=== PATIENT | female | born 1975 | race Caucasian/White ===

== ENCOUNTER 2020-01-08 23:50 | Emergency (ER) | payer MEDICAID, SELFPAY ==
[2020-01-08 23:54] VITALS: BP 113/82; PULSE 94; RESP 18; TEMP 36.8; O2SAT 99; BMI 23.5
--- NOTE | 2020-01-09 00:04 | CTR_ITS ---
PROCEDURE INFORMATION: Exam: CT Head Without Contrast Exam date and time: 01/09/2020 12:06 AM Age: 44 years old Clinical indication: Pain; Headache not specified; Additional info: [place] TECHNIQUE: Imaging protocol: Computed tomography of the head without contrast. Radiation optimization: All CT scans at this facility use at least one of these dose optimization techniques: automated exposure control; mA and/or kV adjustment per patient size (includes targeted exams where dose is matched to clinical indication); or iterative reconstruction. COMPARISON: No relevant prior studies available. RADIATION DOSE METRICS: Total DLP (mGy-cm): 896 FINDINGS: Brain: No acute intracranial hemorrhage or mass effect. No definite acute infarct by CT. Ventricles: Ventricle size is normal for age. Bones/joints: No definite acute skull fracture. Sinuses: 9 mm retention cyst or polyp in the right aspect of the sphenoid sinus. Included paranasal sinuses otherwise appear essentially clear. Mastoid air cells: No significant acute finding. CT/CT head wo con* [id number] IMPRESSION: 1. No acute intracranial hemorrhage or mass effect. 2. Other findings discussed above. Radiation Dose CTDIVOL = (mGy): DLP = 896 (mGy-cm)
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
[2020-01-09 01:26] VITALS: RESP 16
[2020-01-09] MEDS: HYDROmorphone 1 mg/mL INJ 1 mL IVP (01:26)
[2020-01-09] MEDS: metoclopramide 5 mg/mL SDV 2 mL 10 MG IVP (01:27)
[2020-01-09] MEDS: diphenhydrAMINE 50 mg/mL SDV 1mL IVP (01:28)
[2020-01-09 02:04] VITALS: BP 110/78; PULSE 75; RESP 18; O2SAT 93
== END 2020-01-09 02:06 | disposition home or self-care (01) ==
PROVIDERS: Emergency Provider Emergency Medicine; PCP Internal Medicine
DX: R51 Headache (principal); F17.210 Nicotine dependence, cigarettes, uncomplicated
CPT/HCPCS: 12345; 70450; 96374; 96375; 99281; 99283; J1170; J1200; J2765

== ENCOUNTER → 2020-01-22 08:29 | Outpatient (BNVA) | payer MEDICAID, SELFPAY | PROVIDERS: PCP Internal Medicine; Visit Provider Nurse Practitioner Psychiatric/Mental Health | DX: F33.3 Major depressive disorder, recurrent, severe with psychotic symptoms (principal); F41.0 Panic disorder [episodic paroxysmal anxiety]; F43.12 Post-traumatic stress disorder, chronic; F17.210 Nicotine dependence, cigarettes, uncomplicated; Z87.820 Personal history of traumatic brain injury | CPT/HCPCS: 99214 ==

== ENCOUNTER → 2021-07-05 10:16 | Outpatient (BNVA) | payer MEDICAID, SELFPAY | PROVIDERS: PCP Family Medicine; Visit Provider Nurse Practitioner Psychiatric/Mental Health | DX: Z03.89 Encounter for observation for other suspected diseases and conditions ruled out (principal); F17.210 Nicotine dependence, cigarettes, uncomplicated; F33.3 Major depressive disorder, recurrent, severe with psychotic symptoms; F41.0 Panic disorder [episodic paroxysmal anxiety]; F43.12 Post-traumatic stress disorder, chronic; Z87.820 Personal history of traumatic brain injury | CPT/HCPCS: 90792 ==

== ENCOUNTER → 2021-10-07 15:06 | Outpatient (BNVA) | payer MEDICAID, SELFPAY | PROVIDERS: PCP Family Medicine; Visit Provider Registered Nurse Neonatal Intensive Care | DX: N39.0 Urinary tract infection, site not specified (principal) | CPT/HCPCS: 81000 ==

== ENCOUNTER 2022-04-08 23:22 | Emergency (ER) | payer MEDICAID, SELFPAY ==
[2022-04-08 23:26] VITALS: BP 125/75; PULSE 119; RESP 18; TEMP 37.1; O2SAT 100; BMI 26.6
[2022-04-09 00:20] LABS: Add Urine Microscopic? NO; Charge for UA Resulting for Rev
[2022-04-09 00:23] LABS: Bilirubin Urine Neg (Negative); Blood Urine Neg (Negative); Glucose Urine UA Norm (Normal); Ketones Urine Negative (Negative); Leukocyte Esterase Urine Negative (Negative); Nitrate Urine Negative (Negative); Protein Urine Neg (Negative); Specific Gravity, Urine 1.025 (1.005-1.030); Urine Appearance Clear (CLEAR); Urine Color Yellow (Yellow); Urobilinogen Urine Norm (Negative); pH Urine 5 (5-7)
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
[2022-04-09] MEDS: metroNIDAZOLE 500 MG Tablet PO (01:57)
--- NOTE | 2022-04-16 19:27 | PC.NURSE ---
patient called performed and patient notified of positive culture for Bacterial Vaginosis. Patient teaching performed over phone. patient states understanding and denies questions/concerns upon call.
== END 2022-04-09 01:58 | disposition home or self-care (01) ==
PROVIDERS: Emergency Medicine; Emergency Provider Nurse Practitioner; PCP Family Medicine
DX: N76.0 Acute vaginitis (principal); F17.210 Nicotine dependence, cigarettes, uncomplicated
CPT/HCPCS: 81003; 87070; 87205; 87210; 99283

== ENCOUNTER 2022-05-15 16:41 | Emergency (ER) | payer MEDICAID, SELFPAY ==
[2022-05-15 16:50] VITALS: BP 144/87; PULSE 110; RESP 16; TEMP 36.6; O2SAT 98
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
[2022-05-15] MEDS: cephALEXin 500 mg Capsule PO (19:22)
[2022-05-15] MEDS: naproxen 500 mg Tablet PO (19:22)
== END 2022-05-15 19:23 | disposition home or self-care (01) ==
PROVIDERS: Emergency Provider Emergency Medicine
DX: K08.89 Other specified disorders of teeth and supporting structures (principal); F17.210 Nicotine dependence, cigarettes, uncomplicated
CPT/HCPCS: 99283

== ENCOUNTER 2023-06-22 19:51 | Emergency (ER) | payer MEDICAID, SELFPAY ==
[2023-06-22 20:02] VITALS: BP 131/95; PULSE 102; RESP 18; TEMP 36.7
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
--- NOTE | 2023-06-22 20:28 | XRR_ITS ---
PROCEDURE INFORMATION: Exam: XR Chest Exam date and time: 06/22/2023 8:50 PM Age: 47 years old Clinical indication: Dyspnea; Additional info: SOB TECHNIQUE: Imaging protocol: Radiologic exam of the chest. Views: 1 view. COMPARISON: CR XR chest 2V* [id number] 11/12/2021 1:23 PM FINDINGS: Lungs: Unremarkable. No consolidation. Pleural spaces: Unremarkable. No pleural effusion. No pneumothorax. Heart/Mediastinum: Unremarkable. No cardiomegaly. Bones/joints: Unremarkable. XR/XR chest 1V portable [id number] IMPRESSION: No acute findings.
[2023-06-22 20:29] LABS: Rapid Strep A Test Negative (Negative)
[2023-06-22] MEDS: sodium chloride 0.9% 1,000 ML 999 ML IV (20:32)
[2023-06-22 20:33] LABS: Influenza A by IFA negative (Negative); Influenza B by IFA negative (Negative); SARS Covid-2 Antigen negative (Negative)
[2023-06-22 20:36] LABS: Charge for UA Resulting for Rev
[2023-06-22 20:37] LABS: Basophils # 0.1 10^3/uL (0.0-0.1); Basophils % 0.5 %; Eosinophils # 0.1 10^3/uL (0.0-0.8); Eosinophils % 1.4 %; Hematocrit 48.8 % (36-47); Lymphocytes # 2.2 10^3/uL (0.8-4.8); Lymphocytes % 21.5 %; Mean Corpuscular Hemoglobin 29.5 pg (27-33); Mean Corpuscular Volume 89.5 fl (85-98); Mean Platelet Volume 9.8 fL (7.4-10.4); Monocytes # 0.5 10^3/uL (0.2-0.9); Monocytes % 4.5 %; Neutrophils # 7.38 10^3/uL (1.8-7.7); Neutrophils % 71.6 %; Nucleated Red Blood Cells % 0 %; Platelet Count 436 10^3/cmm (157-399); Red Blood Count 5.45 10^6/uL (3.85-5.65); Red Cell Distribution Width 12.4 % (12.1-15.1); White Blood Count 10.29 10^3/uL (3.29-11.43)
[2023-06-22 20:45] LABS: Add Urine Microscopic? NO; Bilirubin Urine Neg (Negative); Blood Urine Neg (Negative); Glucose Urine UA Norm (Normal); Ketones Urine Negative (Negative); Leukocyte Esterase Urine Negative (Negative); Nitrate Urine Negative (Negative); Protein Urine Neg (Negative); Sulfosalicylic Acid Urine Negative (Negative); Urine Appearance Clear (CLEAR); Urine Color Yellow (Yellow); Urobilinogen Urine Norm (Negative); pH Urine 8 (5-7)
[2023-06-22 20:47] LABS: Amphetamines Screen Urine Positive (Negative); Barbiturates Screen Urine Negative (Negative); Benzodiazepines Screen Urine Negative (Negative); Cocaine Screen Urine Negative (Negative); Opiate Screen Urine Negative (Negative); PCP Screen Urine Negative (Negative); THC Screen Urine Negative (Negative)
[2023-06-22 20:52] LABS: Alanine Aminotransferase 28 U/L (0-33); Albumin Level 4.6 g/dL (3.5-5.2); Alkaline Phosphatase 80 U/L (35-105); Anion Gap 14.1 (5-19); Aspartate Amino Transferase 27 U/L (0-32); Blood Urea Nitrogen 8 mg/dL (6-20); Carbon Dioxide 30 mmol/L (22-29); Chloride 98 mmol/L (98-107); Globulin 3.9 g/dL (1.3-4.6); Glomerular Filtration Rate 90.1 mL/min (90-130); Glucose 102 mg/dL (65-115); Osmolality Calculated 285 mOsm/kg (285-295); Potassium 4.1 mmol/L (3.5-5.1); Sodium 138 mmol/L (136-145); Total Bilirubin 0.5 mg/dL (0.15-1.2); Total Protein 8.5 g/dL (6.6-8.7)
[2023-06-22] MEDS: dexamethasone 10 mg/mL INJ IVP (21:23)
[2023-06-22 21:28] VITALS: RESP 18
== END 2023-06-22 21:31 | disposition home or self-care (01) ==
PROVIDERS: Nurse Practitioner Family; Emergency Provider Emergency Medicine; PCP Family Medicine Adult Medicine
DX: J06.9 Acute upper respiratory infection, unspecified (principal); Z11.52 Encounter for screening for COVID-19; F17.210 Nicotine dependence, cigarettes, uncomplicated
CPT/HCPCS: 71045; 80053; 80306; 81003; 85025; 87081; 87426; 87804; 87880; 96361; 96374; 99284; J1100; J7030

== ENCOUNTER 2024-01-09 07:04 | Emergency (ER) | payer MEDICAID, SELFPAY ==
[2024-01-09 07:05] VITALS: BP 120/80; PULSE 78; RESP 22; TEMP 36.3; O2SAT 100
--- NOTE | 2024-01-09 07:06 | CTR_ITS ---
PROCEDURE INFORMATION: Exam: CT Abdomen And Pelvis Without Contrast Exam date and time: 01/09/2024 7:38 AM Age: 48 years old Clinical indication: Abdominal pain; Prior surgery; Surgery date: 6+ months; Surgery type: Gb, partial hyst; Additional info: Flank pain TECHNIQUE: Imaging protocol: Computed tomography of the abdomen and pelvis without contrast. Radiation optimization: All CT scans at this facility use at least one of these dose optimization techniques: automated exposure control; mA and/or kV adjustment per patient size (includes targeted exams where dose is matched to clinical indication); or iterative reconstruction. COMPARISON: CR XR chest 1V portable [id number] 06/22/2023 8:50 PM RADIATION DOSE METRICS: Total DLP (mGy-cm): 754 FINDINGS: Lungs: Lung bases are clear as visualized. Liver: Normal. No mass. Gallbladder and biliary ducts: There are surgical clips within the gallbladder fossa. Pancreas: Normal. No ductal dilation. Spleen: Normal. No splenomegaly. Adrenal glands: Normal. No mass. Kidneys and ureters: Nonobstructing renal calculi are noted on the left. There is mild hydronephrosis and hydroureter on the left extending to the ureterovesical junction where there is a 2-3 mm stone present. The right kidney has a normal noncontrast appearance. Stomach and bowel: There are scattered colonic diverticula. No large bowel wall thickening is appreciated. No dilated loops of large or small bowel is appreciated. Appendix: No evidence of appendicitis. Intraperitoneal space: Unremarkable. No free air. No significant fluid collection. Vasculature: The aorta is normal in caliber. There is calcified plaque involving the aorta and its branch vessels. Lymph nodes: Unremarkable. No enlarged lymph nodes. Urinary bladder: Unremarkable as visualized. Reproductive: The uterus is not definitely identified. There is a right adnexal/ovarian cyst measuring 4 cm in size small hyperdensity noted involving what is presumed to be the vaginal cuff. This may represent a Storm's duct cyst. Bones/joints: Unremarkable. No acute fracture. Soft tissues: There is a small fat filled periumbilical hernia. CT/CT kidney stone [id number] IMPRESSION: 1. Nephrolithiasis on the left. 2. Mild hydronephrosis and hydroureter on the left secondary to a small distal left ureteral stone. 3. 4 cm right ovarian cyst. No further imaging is recommended. (Reference: Shayan) References: Shayan et al. Management of Incidental Adnexal Findings on CT and MRI: A White Paper of the ACR Incidental Findings Committee, J Am Tomas Radiol. 2019;17(2):248-254.
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
[2024-01-09 07:24] LABS: Basophils % 0.5 %; Eosinophils # 0.1 10^3/uL (0.0-0.8); Eosinophils % 1.2 %; Hematocrit 42.8 % (36-47); Lymphocytes # 2.7 10^3/uL (0.8-4.8); Lymphocytes % 32.4 %; Mean Corpuscular HGB Conc 33.6 g/dL (30-55); Mean Corpuscular Hemoglobin 30.6 pg (27-33); Mean Corpuscular Volume 90.9 fl (85-98); Monocytes # 0.5 10^3/uL (0.2-0.9); Neutrophils # 4.96 10^3/uL (1.8-7.7); Neutrophils % 59.8 %; Nucleated Red Blood Cells % 0 %; Platelet Count 351 10^3/cmm (157-399); Red Blood Count 4.71 10^6/uL (3.85-5.65); Red Cell Distribution Width 12.2 % (12.1-15.1)
[2024-01-09 07:32] VITALS: RESP 20; O2SAT 100
[2024-01-09] MEDS: morphine 4 mg/mL SDV 1 mL IVP (07:32)
[2024-01-09] MEDS: ondansetron 2 mg/ML SDV 2 mL 4 MG IVP (07:35)
[2024-01-09] MEDS: sodium chloride 0.9% 1,000 ML 999 ML IV (07:35)
[2024-01-09] MEDS: ketorolac 30 mg/mL INJ IVP (07:35)
[2024-01-09 07:40] LABS: Alanine Aminotransferase 20 U/L (0-33); Albumin Level 4.3 g/dL (3.5-5.2); Alkaline Phosphatase 68 U/L (35-105); Anion Gap 14.9 (5-19); Aspartate Amino Transferase 21 U/L (0-32); Blood Urea Nitrogen 18 mg/dL (6-20); Calcium 9.3 mg/dL (8.5-10.5); Carbon Dioxide 24 mmol/L (22-29); Chloride 106 mmol/L (98-107); Creatinine Clr Calc Pharmacy 96.7896; Globulin 2.7 g/dL (1.3-4.6); Glomerular Filtration Rate 76.9 mL/min (90-130); Glucose 128 mg/dL (65-115); Lipase 27 U/L (13-60); Osmolality Calculated 296 mOsm/kg (285-295); Potassium 3.9 mmol/L (3.5-5.1); Sodium 141 mmol/L (136-145); Total Bilirubin 0.8 mg/dL (0.15-1.2)
[2024-01-09 07:52] LABS: Charge for UA Resulting for Rev
[2024-01-09 08:13] VITALS: BP 118/79; PULSE 68; O2SAT 96
[2024-01-09 08:33] LABS: Bilirubin Urine Negative (Negative); Blood Urine 3+ (Negative); Glucose Urine UA Negative (Normal); Ketones Urine Negative (Negative); Leukocyte Esterase Urine Negative (Negative); Nitrate Urine Negative (Negative); Protein Urine Trace (Negative); Specific Gravity, Urine 1.029 (1.005-1.030); Urine Appearance Cloudy (CLEAR); Urine Color Yellow (Yellow)
[2024-01-09 08:35] LABS: Bacteria Urine None Seen /hpf; Hyaline Casts Urine 1.65 /lpf; RBC Urine >100 /hpf (0-2); Squamous Epithelial Cell Urine 0-5 /hpf (0-5); WBC Urine 0-5 /hpf (0-5)
[2024-01-09 08:38] LABS: Add Urine Culture? Yes
[2024-01-09 08:55] VITALS: BP 124/91; PULSE 89; O2SAT 98
[2024-01-09] MEDS: HYDROcodone-acetaminophen 7.5-325 mg Tablet 1 TAB PO (08:57)
== END 2024-01-09 08:56 | disposition home or self-care (01) ==
PROVIDERS: Emergency Provider Emergency Medicine; PCP Family Medicine Adult Medicine
DX: N13.2 Hydronephrosis with renal and ureteral calculous obstruction (principal); F17.210 Nicotine dependence, cigarettes, uncomplicated; Z87.442 Personal history of urinary calculi
CPT/HCPCS: 74176; 80053; 81003; 81015; 83690; 85025; 87086; 96374; 96375; 99285; J1885; J2270; J2405; J7030

== ENCOUNTER 2024-05-03 05:15 | Emergency (ER) | payer MEDICAID, SELFPAY ==
[2024-05-03 05:30] VITALS: BP 105/76; PULSE 95; RESP 30; TEMP 36.3; O2SAT 94; BMI 28.1
--- NOTE | 2024-05-03 05:32 | ECG_ITS ---
[facility] Pat Name: Chloe Oliveros Department: Room: Gender: Female [employer]: : 1975 Requested By: Sami Smart Order Number: [id number] Karson MD: Jillian Vaughn M.D. Measurements Intervals [place] Rate: 93 P: 81 GA: 117 QRS: 87 QRSD: 97 T: 75 QT: 362 QTc: 450 Interpretive Statements SINUS RHYTHM WITH MARKED SINUS ARRHYTHMIA WITH SHORT GA INTERVAL No previous ECG available for comparison Electronically Signed On 05-03-2024 19:44:34 PHONOGRAPH NEEDLE TIP MAKER by Jillian Vaughn M.D. [id number]
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
[2024-05-03] MEDS: ondansetron 2 mg/ML SDV 2 mL 4 MG IVP (05:42)
[2024-05-03] MEDS: ketorolac 30 mg/mL INJ IVP ×2 (05:42→08:54)
[2024-05-03 05:56] LABS: Basophils % 0.2 %; Eosinophils # 0.1 10^3/uL (0.0-0.8); Eosinophils % 0.4 %; Hematocrit 47.5 % (36-47); Lymphocytes # 0.4 10^3/uL (0.8-4.8); Lymphocytes % 3.7 %; Mean Corpuscular HGB Conc 33.3 g/dL (30-55); Mean Corpuscular Hemoglobin 29.4 pg (27-33); Mean Corpuscular Volume 88.3 fl (85-98); Mean Platelet Volume 10.6 fL (7.4-10.4); Monocytes # 0.2 10^3/uL (0.2-0.9); Monocytes % 2.2 %; Neutrophils # 10.38 10^3/uL (1.8-7.7); Neutrophils % 93.2 %; Nucleated Red Blood Cells % 0 %; Platelet Count 287 10^3/cmm (157-399); Red Blood Count 5.38 10^6/uL (3.85-5.65); White Blood Count 11.13 10^3/uL (3.29-11.43)
[2024-05-03 06:05] LABS: Alanine Aminotransferase 19 U/L (0-33); Albumin Level 4.9 g/dL (3.5-5.2); Alkaline Phosphatase 72 U/L (35-105); Anion Gap 19.7 (5-19); Aspartate Amino Transferase 22 U/L (0-32); Blood Urea Nitrogen 14 mg/dL (6-20); Calcium 10.2 mg/dL (8.5-10.5); Carbon Dioxide 24 mmol/L (22-29); Chloride 101 mmol/L (98-107); Creatinine Clr Calc Pharmacy 95.5446; Glomerular Filtration Rate 76.9 mL/min (90-130); Glucose 119 mg/dL (65-115); Osmolality Calculated 294 mOsm/kg (285-295); Potassium 3.7 mmol/L (3.5-5.1); Sodium 141 mmol/L (136-145); Total Bilirubin 1.4 mg/dL (0.15-1.2); Total Protein 7.9 g/dL (6.6-8.7)
[2024-05-03 06:24] LABS: Acetaminophen < 5.0 ug/mL (10-30); Alcohol Level < 10 mg/dL (0-10); Salicylate < 0.3 mg/dL (3-10)
--- NOTE | 2024-05-03 07:00 | PC.NURSE ---
ASSUMED CARE FROM ALB[facility] FORTUNE AT 0700.
--- NOTE | 2024-05-03 07:26 | PC.PHAR ---
Pt had her rx bottles in the room with her and states has not taken anything yet today.
[2024-05-03 07:50] VITALS: BP 106/71; PULSE 89; RESP 17; O2SAT 98
[2024-05-03 08:07] LABS: Bilirubin Urine Negative (Negative); Blood Urine Negative (Negative); Glucose Urine UA Negative (Normal); Ketones Urine Trace (Negative); Leukocyte Esterase Urine 1+ (Negative); Nitrate Urine Negative (Negative); Protein Urine 1+ (Negative); Specific Gravity, Urine 1.023 (1.005-1.030); Urine Appearance Cloudy (CLEAR); Urine Color Yellow (Yellow)
[2024-05-03 08:12] LABS: Add Urine Microscopic? YES; Bacteria Urine 2+ /hpf; Hyaline Casts Urine 0.81 /lpf
[2024-05-03 08:14] LABS: Amphetamines Screen Urine Positive (Negative); Barbiturates Screen Urine Negative (Negative); Benzodiazepines Screen Urine Negative (Negative); Cocaine Screen Urine Negative (Negative); Opiate Screen Urine Negative (Negative); PCP Screen Urine Negative (Negative); THC Screen Urine Positive (Negative)
[2024-05-03] MEDS: acetaminophen 325 mg Tablet 650 MG PO (08:53)
[2024-05-03 10:06] VITALS: BP 119/78; PULSE 100; O2SAT 98
== END 2024-05-03 10:07 | disposition home or self-care (01) ==
PROVIDERS: Emergency Provider Family Medicine; PCP Family Medicine Adult Medicine
DX: F19.10 Other psychoactive substance abuse, uncomplicated (principal); N30.90 Cystitis, unspecified without hematuria; F17.210 Nicotine dependence, cigarettes, uncomplicated
CPT/HCPCS: 36415; 80053; 80306; 80307; 81001; 85025; 93005; 96374; 96375; 96376; 99285; J1885; J2405

== ENCOUNTER → 2024-10-18 13:22 | Outpatient (BNVA) | payer MEDICAID, SELFPAY | PROVIDERS: Visit Provider Emergency Medicine | DX: R39.9 Unspecified symptoms and signs involving the genitourinary system (principal); N94.9 Unspecified condition associated with female genital organs and menstrual cycle; R30.0 Dysuria; K04.7 Periapical abscess without sinus | CPT/HCPCS: 81000; 81513; 87086; 87481; 87491; 87591; 87661 ==